=== PATIENT | male | born 1950 | race Caucasian/White ===

== ENCOUNTER 2016-10-13 10:15 | Outpatient (RCR) | payer MEDICARE, BC | END 2016-11-30 | disposition home or self-care (01) | LOC: WSC → WSPT 10:15 | DX: M77.11 Lateral epicondylitis, right elbow (principal) | CPT/HCPCS: G8984-GP; G8985-GP ==

== ENCOUNTER → 2017-08-26 | Outpatient (CLI) | payer MEDICARE, BC | LOC: COL.RAD 07:59 | DX: Z13.6 Encounter for screening for cardiovascular disorders (principal); I70.0 Atherosclerosis of aorta ==

== ENCOUNTER 2020-03-19 09:45 | Outpatient (RCR) | payer MEDICARE, OTHER | END 2020-05-27 | disposition home or self-care (01) | LOC: WSPT | DX: M25.511 Pain in right shoulder (principal); M25.512 Pain in left shoulder ==

== ENCOUNTER 2020-10-22 08:30 | Outpatient (RCR) | payer MEDICARE, OTHER | END 2020-10-28 | disposition still patient (30) | LOC: WSPT | DX: Z98.890 Other specified postprocedural states (principal) ==

== ENCOUNTER 2020-11-18 08:30 | Outpatient (RCR) | payer MEDICARE, OTHER | END 2020-11-26 08:20 | disposition home or self-care (01) | LOC: PT.GENESIS 08:30 | DX: Z98.890 Other specified postprocedural states (principal) ==

== ENCOUNTER 2022-09-02 11:15 | Outpatient (RCR) | payer MEDICARE, OTHER | END 2022-09-07 14:17 | disposition home or self-care (01) | LOC: PT.GENESIS 11:15 | DX: M25.562 Pain in left knee (principal) ==